=== PATIENT | female | born 1985 | race African-American/Black ===

== ENCOUNTER 2018-06-26 20:39 | Emergency (ER) | payer BC ==
[2018-06-26] MEDS ORDERED: Lidocaine 1% w/Epinephrine 1:100K 20 ML VIAL ONE (22:13)
[2018-06-26] MEDS ORDERED: Adacel (T-DAP) 0.5 ML SYRINGE ONE (22:53)
== END 2018-06-26 23:24 | disposition home or self-care (01) ==
LOC: ERS 20:39
DX: L03.112 Cellulitis of left axilla (principal)
CPT/HCPCS: 10061; 90471; 90715; J2001

== ENCOUNTER 2018-08-18 12:25 | Outpatient (CLI) | payer BC ==
--- NOTE | 2018-08-23 18:24 | MMO ---
Bilateral MAMMO Bilat Screen [facility]. CLINICAL HISTORY: Patient is 33 years old and is seen for screening. The patient has the following family history of breast cancer: paternal grandmother, malignant (generic) and paternal aunt, malignant (generic). The patient has no personal history of cancer. VIEWS: The views performed were: bilateral craniocaudal; bilateral craniocaudal with tomosynthesis; and bilateral mediolateral oblique with tomosynthesis. MAMMOGRAM FINDINGS: The breasts are almost entirely fat. There are no suspicious masses, suspicious calcifications, or new areas of architectural distortion. IMPRESSION: THERE IS NO MAMMOGRAPHIC EVIDENCE OF MALIGNANCY. AGE APPROPRIATE SCREENING BASED ON RISK FACTORS IS RECOMMENDED. THE RESULTS OF THIS EXAM WERE SENT TO THE PATIENT. ACR BI-RADS Category 1 - Negative MAMMOGRAPHY NOTE: 1. A negative mammogram report should not delay a biopsy if a dominant of clinically suspicious mass is present. 2. Approximately 10% to 15% of breast cancers are not detected by mammography. 3. Adenosis and dense breasts may obscure an underlying neoplasm.
== END 2018-08-18 12:26 | disposition home or self-care (01) ==
LOC: BICMAMMO 12:25
PROVIDERS: ATTEND Family Medicine
DX: Z12.31 Encounter for screening mammogram for malignant neoplasm of breast (principal); Z80.3 Family history of malignant neoplasm of breast
CPT/HCPCS: 77063; 77067

== ENCOUNTER 2018-08-31 08:35 | Outpatient (CLI) | payer BC ==
--- NOTE | 2018-08-31 09:51 | ULT ---
PELVIC ULTRASOUND INCLUDING TRANSABDOMINAL, TRANSVAGINAL, AND VASCULAR DUPLEX WITH COLOR AND SPECTRAL DOPPLER IMAGING: HISTORY: Pelvic pain. FINDINGS: The uterus measures 10.8 x 4.7 x 6.6 cm. Endometrium was poorly seen because of calcified uterine fi broids. The right ovary was not seen. The left ovary measures 3.0 x 3.9 x 3.9 cm and contains a 3.0 x 3.4 x 3.1 cm cyst. Multiple calcified uterine fibroids measure up to 4.4 x 4.6 x 5.6 cm. No evid ence for abscess or significant abnormal fluid collection. IMPRESSION: Multiple intrauterine fibroids which appear to be at least partially calcified. 3.1 x 3.4 cm left ov sonu cyst. Nonvisualized right ovary. POS: OFF
== END 2018-08-31 08:36 | disposition home or self-care (01) ==
LOC: ULT 08:35
PROVIDERS: ATTEND Advanced Practice Midwife
DX: R10.2 Pelvic and perineal pain (principal); D25.9 Leiomyoma of uterus, unspecified; N83.202 Unspecified ovarian cyst, left side
CPT/HCPCS: 76856